=== PATIENT | male | born 1950 | race Caucasian/White ===

== ENCOUNTER 2019-08-10 11:16 | Observation (INO) | payer OTHER, SELFPAY ==
[2019-08-09] VITALS (21 sets, daily range): BP systolic 98–178; BP diastolic 60–97; PULSE 59–97; RESP 12–19; TEMP 36.3–37.2; O2SAT 91–99; BMI 27.7
--- NOTE | 2019-08-09 | PATH_ITS ---
[facility] Accession Number: [id number] . 01 Material submitted: . prostate - PROSTATE TISSUE . 02 Diagnosis: Prostate Tissue, Transurethral Resection: Benign prostatic hyperplasia. No evidence of neoplasia. [facility] 08/12/2019 1156 Local . 02 Electronically signed: . Salma George MD, Pathologist NPI- [id number] . 01 Gross description: . Received in formalin, labeled prostate tissue, are multiple fragments of hernandez rubbery tissue (26 grams, 6.5 x 5.0 x 2.0 cm in aggregate). [employer] tissue submitted in cassettes A1-A10. ([id number]) /MRV 08/11/2019 2148 Local . 02 Pathologist provided ICD-10: N40.1 . 02 CPT . 030714 Performed at: 01 [facility] [address] [id number] MD Jossue Osborne MD Phone: [phone] Performed at: 02 [facility] [address] [place], [place] [id number] MD Salma George MD Phone: [phone]
--- NOTE | 2019-08-09 07:44 | PM.PREOP ---
Pre-operative Note Interval Note History & Physical reviewed/Exam performed by Physician: Yes Changes to H&P: No H&P completed within 30 days and has changed as indicated here:: H&P on file.
--- NOTE | 2019-08-09 07:45 | PM.HP.1 ---
History of Present Illness History of Present Illness Date Patient Seen: 08/09/19 Chief complaint: [id number] Meds Home Medications and Allergies Home Medications Medication Instructions Recorded Confirmed Type ascorbic hyrh-axrykgrd-fod 1,000 mg PO 08/09/19 History [Emergen-C] finasteride 5 mg PO DAILY 08/09/19 08/09/19 History tamsulosin 0.4 mg PO DAILY 08/09/19 08/09/19 History Allergies Allergy/AdvReac Type Severity Reaction Status Date / Time codeine AdvReac Intermediate Anxiety Verified 08/09/19 08:03 Review of Systems Review of Systems Narrative: Review of systems contained in scanned H&P. Assessment & Plan Assessment & Plan narrative: Bladder outlet obstruction. 1. Transurethral resection of prostate
[2019-08-09] MEDS: LACTATED RINGERS 1,000 ML 42 ML IV ×2 (08:05→10:45)
--- NOTE | 2019-08-09 08:46 | PM.OP.1 ---
Operative Date/Time/Diagnoses Date of procedure: 08/09/19 Time of procedure: 08:46 Pre-op diagnosis: Phimosis Balanitis Post-op diagnosis: same Procedure & Clinicians Procedure: Revision circumcision (dorsal slit) Same procedure as scheduled: Yes Indications: 1. Phimosis 2. Balanitis Surgeon: Alcides Jimenez Click Yes if Unassisted: Yes Anesthesia Type: General Operative Notes Findings: Chronic inflammation Active inflammation Closure Type: primary Specimen(s): none sent Prosthetic devices, grafts, tissues, transplants, or devices: Not applicable Estimated Blood Loss (mL): 0 Blood products transfused: none Tourniquet time (min): 0 Complications: none Post-operative Condition: stable Disposition: PACU Plan for aftercare: Schedule appointment with Dr. Jimenez in 2 weeks.
[2019-08-09] MEDS: CEFAZOLIN 2 GM/100 ML FROZ.PIGGY IV (09:00)
--- NOTE | 2019-08-09 09:28 | SUR.OPER ---
Lithotomy on padded OR bed, head on pillow, arms secured on padded arm boards at <90 degrees abduction. Legs secured in padded yellow fins stirrups.
[2019-08-09] MEDS: BELLADONNA/OPIUM SUPPOSITORIES 1 EACH PR (10:25)
--- NOTE | 2019-08-09 11:04 | PM.OP.1 ---
Operative Date/Time/Diagnoses Date of procedure: 08/09/19 Time of procedure: 10:45 Pre-op diagnosis: 1. Bladder outlet obstruction 2. History of prostate cancer Post-op diagnosis: same Procedure & Clinicians Procedure: Transurethral resection of prostate Same procedure as scheduled: Yes Indications: 1. Bladder outlet obstruction 2. Known history of prostate cancer Surgeon: Alcides Jimenez Click Yes if Unassisted: Yes Anesthesia Type: General Operative Notes Findings: Urethral-normal. External sphincter-coapted. Prostate-3.5-4 cm length with moderate try lobar hyperplasia. Bladder-1 to 2+ trabeculation. Normal orifices bilaterally. No stone tumor or foreign body seen. Closure Type: not applicable Specimen(s): other (Prostate resection chips) Applied: catheter (Twenty-four Slovenian 3 way irrigation catheter) Estimated Blood Loss (mL): 50 Blood products transfused: none Procedure in detail: Following induction of general anesthesia the patient was positioned in semi lithotomy and the lower abdomen and genitalia were prepped and draped in sterile fashion. the 25 Slovenian resectoscope was then advanced into the lower urinary track under direct visualization. The resecting loop was then fitted to the resectoscope element with 30 degree lens. Transurethral incisions were then made at 1 and 11:00 a.m. starting at the bladder neck and extending to the level of verumontanum resection was taken to the level of the surgical capsule. The intervening anterior tissue was then resected in a likewise manner. Next, the left and then the right lateral lobes were resected resected. Again, the resection was conducted between the bladder neck and verumontanum with a depth to the level of the surgical capsule. Now the floor and median lobe were resected in the same manner hemostasis was largely achieved with electrocautery there was some residual venous ooze. The bladder is was left partially filled and the resectoscope was removed. A [address] Fisher catheter was then inserted. The balloon was inflated to 45 cc. Gentle traction was then applied to the catheter and the bladder and the lower urinary tract was irrigated until the a syringe outflow was a light red. There was no clots. The 3 way catheter inflow was then fitted with gravity normal saline the outflow was attached to a collection bag all the tissue from the drain and iliac evacuator were collected and submitted to pathology for routine gross and microscopic examination. The patient was then repositioned in supine and awakened transferred to a gurney and transported to recovery in stable condition. Complications: none Post-operative Condition: stable Disposition: PACU Plan for aftercare: To admit
[2019-08-09] MEDS: LACTATED RINGERS 1,000 ML 100 ML IV ×2 (12:44→22:29)
[2019-08-09] MEDS: OXYCODONE IR 5 MG TABLET PO ×2 (13:41→23:05)
[2019-08-09] MEDS: ACETAMINOPHEN 325 MG TABLET 650 MG PO ×3 (13:42→20:46)
--- NOTE | 2019-08-09 15:20 | PC.NURSE ---
Day Shift- RN Coordinator Ron garnett report from PACU. This RN received written report. Pt arrived to unit at 1209 into room 214. Pt's at bedside. Pt A&OX4, states feeling slightly groggy still. Reports 5/10 pelvic discomfort and urinary catheter tugging/pulling. Catheter secure device changed to be closer to groin. CBI infusing for bright/dark red blood with sediment and blood clots. Irrigated catheter X4 with sterile NS. Changed urinary catheter tubing/bag X1 at 1230 due to unable to retrieve clot. Medicated with scheduled Tylenol and prn Oxycodone at 1340 with good effect. Pain decreased from 5/10 to 3/10 to pelvic area. Pt continues to state the sensation like he has to void. Explained the irrigation and sensation post TURP. See in/out irrigation flowsheet. At 1530, urine has less sediment, no clots, lightening in color from bright/dark red to red, appears more diluted.
--- NOTE | 2019-08-09 23:49 | PC.NURSE ---
Addendum entered by Daisha Edwards R.N. 08/10/19 06:40: Medicated with Oxycodone for 4/10 suprapubic pain. Urine is beamster red this morning and has had no clots during the night. Original Note: Patient is alert and oriented. Breath sounds CTA with RA sat of 92%. HRR. Denies nausea. BT present but not passing flatus as yet; mildly distended. Indwelling catheter patent with continuous irrigation infusing via 3 way catheter; urine is watermelon color and without clots noted. Able to move self in bed but preferring to stay on back. Up earlier on evening shift at edge of bed using walker and 1 assist. Complained of 3/10 suprapubic pain and was medicated with Oxycodone. Wearing bilateral SCD's. Fall risk score is high and bed alarm is activated.
[2019-08-10] MEDS: ACETAMINOPHEN 325 MG TABLET 650 MG PO ×5 (00:37→23:41)
[2019-08-10 04:38] VITALS: BP 130/77; PULSE 66; RESP 16; TEMP 36.6; O2SAT 93
[2019-08-10] MEDS: OXYCODONE IR 5 MG TABLET PO ×3 (06:32→20:11)
[2019-08-10] MEDS: LACTATED RINGERS 1,000 ML 100 ML IV (07:38)
[2019-08-10 08:00] VITALS: BP 135/82; PULSE 62; RESP 16; TEMP 36.6; O2SAT 96
[2019-08-10] MEDS: FINASTERIDE 5 MG TABLET PO (09:12)
[2019-08-10] MEDS: DOCUSATE 100 MG CAPSULE PO ×2 (09:12→20:11)
--- NOTE | 2019-08-10 11:18 | PM.PN.1 ---
Subjective Subjective Date Patient Seen: 08/10/19 Time Patient Seen: 11:18 Interval history: Catheter hand irrigation was required intermittently from about 1600 219 100 p.m. yesterday intermittently. I spoke with staff nurse later in the evening and catheter was functioning well on brisk saline gravity irrigation. The remainder of the night was uneventful and he required no further irrigation and has remained light pink. He denies nausea vomiting or significant postoperative discomfort. Exam Vital Signs (past 8 hours): - 08/10/19 04:38 08/10/19 08:00 Temperature 97.9 F 97.8 F Pulse Rate 66 62 Respiratory Rate 16 16 Blood Pressure 130/77 135/82 Pulse Oximetry 93 96 Oxygen Delivery Method Room Air Oxygen Flow Rate 0 He is sitting upright in bed no acute distress. Chest equal clear and unlabored bilaterally abdomen is scaphoid soft without tenderness. Extremities are warm and without pallor or cyanosis. SC D's are in place. Assessment & Plan Assessment & Plan narrative: 1. Stable status post transurethral resection of prostate. He currently requires further observation with continuous gravity saline irrigation. 1. Plan to increase diet and activity and observe color and character of catheter outflow. Will place plug and catheter inflow when reliably clear. 2. Pathology pending. Quality VTE Deep Vein Thrombosis/Pulmonary Embolism Present on Admission: No
--- NOTE | 2019-08-10 11:23 | PC.NURSE ---
Addendum entered by Margot Villa R.N. 08/10/19 15:00: Plugged pts catheter and he now has 150cc of strawberry colored urine output. His true urine before being disconnected from irrigation was 325cc. Pt is drinking po well. Original Note: Assess- Patient is now sitting up in chair.. into see patient and turned down patients irrigation to 3 way 24f blount catheter. He has some strawberry colored urine in bag now. Urine color has cleared up a lot since last evening. He is now heplocked and has been taking po intake well. Does have some lower abdominal pain and is getting oxycodone for discomfort. is in room and he has not complained of any nausea. Stood up and ambulated in room with walker, initally felt dizzy but that has resolved. Patients vital signs are wnl.
--- NOTE | 2019-08-10 14:01 | CM.DANOTE ---
DCP Assessment: EMR reviewed: Patient is a 68 yr old male who was admitted for Transurethral resection of the prostate preformed by Dr. Jimenez. Patients PCP is Reji Bone. CM/RN met with patient at the bedside and explained role. Patient was alert and oriented during CM/RN meeting. Patients , Jacek was present during CM/RN meeting. Patient lives in [facility] in a two story home. Patients bedroom and bathroom are on the second floor and the patients kitchen and other living spaces is on the ground floor. Patients ask if she could have some care giving training for how to help her up the stairs and how to help patient while he is recovering. CM/RN spoke with patients Nurse and she called patients provider and was given the okay to order PT to work with patient and his prior to D/C. PT evaluation pending. I: [place] and self pay Plan: D/C home when medically stable. Have PT evaluate and help with caregiver training prior to D/c. No other d/c planning needs noted at this time. CM department will follow to help with any d/c planning needs that may arise. Tova Pillai RN. Discharge Planning/Care Management Advanced directive, confirm from FAMILY Start: 08/09/19 12:40 Freq: Q24H Status: Active Protocol: Document 08/09/19 12:44 SFP (Rec: 08/09/19 12:45 SFP [id number]) Advance Directive, confirm on record Time 12:45 Person contacted jacek, spouse Copy received No Document 08/10/19 13:37 CLL (Rec: 08/10/19 13:37 CLL [id number]) Advance Directive, confirm on record Time 12:45 Person contacted jacek, spouse Copy received No CM Discharge Assessment Start: 08/10/19 13:59 Freq: Status: Active Protocol: Document 08/10/19 13:59 HS (Rec: 08/10/19 14:00 HS [id number]) Discharge Planning Assessment Assigned Nurse Behavioral Health Care Tova Pillai RN DPOA/Assigned Designee Name Jacek De La Fuente () Contact Information [phone] Advance Directives? Yes History Provided By Patient,Significant Other Has Patient been admitted in last 30 No days? Prior Living Arrangements House Comment Patient lives in [facility] Household Members spouse Type of transporation used prior to Drives own vehicle admit Independent with ADL's Yes Is patient alert and oriented? Yes Caregiver for Another No DME Already Rented / Owned Bath Bench,FWW / Walker Discharge Plan Home Referrals Initiated None needed Whiteboard Updated in Patient Room with Yes name and ext. # of Nurse Behavioral Health Care Review Status In Process Next Review Type Continued Stay Review Pre-Anesthesia Assessment Start: 08/05/19 11:34 Freq: Status: Complete Protocol: Document 08/05/19 11:34 CAB (Rec: 08/05/19 11:36 CAB [id number]) Pre-Anesthesia Assessment PAC Comment No previous medical history identified, PCP unknown. Surgeon H&P not available at time of assess, unable to complete PAC
--- NOTE | 2019-08-10 14:55 | PT.IIE ---
Current Diagnoses Malignant neoplasm of prostate (08/09/19) Benign prostatic hyperplasia with lower urinary tract symptoms (08/09/19) Surgery Performed Operation Date: 08/09/19 09:15 Actual Procedures p Transurethral Resection Prostate(Not Applicable) - Alcides Jimenez MD Physical Therapy Inpatient Evaluation/Re-Eval M1 PT/OT-IP Prior Functional Status Start: 08/10/19 15:58 Freq: NEEDED Status: Active Protocol: Document 08/10/19 14:55 AB (Rec: 08/10/19 16:32 AB [id number]) Medical Review Prior Functional Status Medical History Reviewed Yes Communication able to make needs known Mobility and Gait pt stated that he is independent with all mobilities and ambulation without AD Social History Household Members spouse Living Arrangements House Number of Floors (Floors) Two Floors Number of Stairs To Enter/Railing? 2 steps to enter without rails 12 steps with R rail ascending to 2nd level bedroom Home Environment Standard Height Toilet,Walk in Shower,Built-In Shower Seat Home Equipment Straight Cane,Hand Held Shower ,Grab Bars In Shower Employment Status Retired Additional Social History Comment spouse will assist pt but only for a few days per pt. M2 PT-IP Current Condition Start: 08/10/19 15:58 Freq: NEEDED Status: Active Protocol: Document 08/10/19 14:55 AB (Rec: 08/10/19 16:32 AB [id number]) Physical Therapy Current Condition Current Condition Evaluation Date 08/10/19 Treatment Diagnosis s/p TURP; difficulty in walking Onset Date 08/09/2019 M3 PT-IP Subjective Start: 08/10/19 15:58 Freq: NEEDED Status: Active Protocol: Document 08/10/19 14:55 AB (Rec: 08/10/19 16:32 AB [id number]) Subjective Physical Therapy Visit Type Type Initial Evaluation Visit Start Time 14:55 Visit Stop Time 15:50 Total Visit Minutes 55 Number of INFORMATION ASSISTANT Visits 0 Physical Therapy Visit Comments Patient Comments pt agreeable to do PT Therapy Pain Assessment Pain When Pain Assessed At Rest Pain Present Pain Present Pain Reported Location Lower Abdomen Intensity 2 Scale Used Numeric (1 - 10) M4 PT-IP Mobility and Gait Start: 08/10/19 15:58 Freq: NEEDED Status: Active Protocol: Document 08/10/19 14:55 AB (Rec: 08/10/19 16:32 AB [id number]) PT-Bed Mobility Assessment Rolling Type of Rolling Log Rolling Level of Assist Standby Assistance Supine to Sit Supine to Sit Standby Assistance Sit to Supine Sit to Supine Standby Assistance Scooting Scooting to Edge of Bed Standby Assistance PT-Transfer Assessment Sit to and From Stand Sit to and from Stand Standby Assistance,1 Person Assistance,Use of Upper Extremities Equipment Transfer Assistive Device Gait Belt,Front Wheeled Walker Orthotic/Prosthetic Devices or Brace: No Transfers Transfer Destination Chair Transfer Technique ambulated using FWW Transfer Ability Level of Assist Standby Assistance,Contact Guard Assistance,1 Person Assistance,Use of Upper Extremities Comments Mobility Comments pt completed supine to sit log roll SBA and cues. pt was able to sit on EOB SBA. pt completed sit to stand CGA and cues and ambulated to the chair SBA to CGA. pt agreed to do further ambulation and stair climbing and completed. requested to go back to bed afterwards. completed sit to supine SBA. positioned pt in bed. call light and table placed within reach. informed pt regarding recommendation of using a FWW at this time for safety as pt' s activity tolerance is still low. stated that he will ask his if they come borrow one somewhere and will informed therapy if he needs to purchase one. Gait Assessment Gait Gait Assistance Required: Standby Assistance,Contact Guard Assist Distance (Feet) 300 Assistive Devices Assistive Device Gait Belt,Front Wheeled Walker Orthotic/Prosthetic Devices or Brace: No Gait Deviations General Gait Pattern Antalgic,Decreased Stride Length,Decreased Feet Clearance Factors Limiting Gait Function Factors Limiting Gait Function Decreased Activity Tolerance, Decreased Strength,Pain,Poor Balance Comments Gait Comments completed ambulation in room ~ 20 ft CGA using FWW. ambulated in the hallway ~ 300 ft SBA to CGA using fWW with decrease step length and LE elvation. stated that his R knee is bothering him. completed steps and ambulated back to the room using FWW ~ 300 ft SBA. stated that he feels steadier with 2nd walk. assessed ambulation without AD and pt completed with CGA. presents with antalgic gait with increase R knee flexion during stance phase. pt c/o R knee posterior tightness. Pt stated that he feels shaky towards end of tx session. Stair Climbing Assessment Evaluation Level of Assist On Stairs Contact Guard Assistance, Minimal Assistance,1 Person Assistance Devices Stair Climbing Assistive Devices None,Straight Cane,Right Railing Technique/Endurance Stair Climbing Direction Ascend and Descend Stair Climbing Technique Step to Step Number of Steps Climbed 3 Query Text: Stair Climbing Set # Repetitions (reps) 4 Comments Stair Climbing Comments completed steps with bilateral rails CGA then completed just R rail ascending holding with B hands CGA. up/down 3 steps without rails min A and cues. PT educated and demonstrated use of SPC with stair climbing . pt use SPC on L side since pt is c/o R knee bothering him . completed up/down 3 steps using SPC CGA and cues. PT-Balance Assessment Sitting Balance and Reactions Static Sitting Balance Ability Good Dynamic Sitting Balance Ability Good Standing Balance and Reactions Static Standing Balance Ability Good Dynamic Standing Balance Ability Fair Device Used FWW M5 PT-IP Objective Assessments Start: 08/10/19 15:58 Freq: NEEDED Status: Active Protocol: Document 08/10/19 14:55 AB (Rec: 08/10/19 16:32 AB [id number]) Orientation Orientation/Cognition Level of Alertness Alert Orientation Name,Place,Situation Safety Awareness Understands Safety Issues Memory Description No Deficits Noted Gross Range of Motion Lower Extremity ROM Assessment Within Functional Limits Strength Lower Extremity Strength Hip 4-/5 Knee 4-/5 Coordination Assessment Gross Coordination Gross Coordination WNL Sensation Assessment Sensation Gross Sensation WNL Muscle Tone Muscle Tone WNL Yes M6 PT-IP Treatment Start: 08/10/19 15:58 Freq: NEEDED Status: Active Protocol: Document 08/10/19 14:55 AB (Rec: 08/10/19 16:32 AB [id number]) Physical Therapy Treatment Education Education Provided Safety M7 PT-IP Assessment and Plan Start: 08/10/19 15:58 Freq: NEEDED Status: Active Protocol: Document 08/10/19 14:55 AB (Rec: 08/10/19 16:32 AB [id number]) PT Summary Assessment and Plan Potential Rehabilitation Potential Good Status of Condition at Evaluation Stable Summary Impairments Pain,ROM,Strength,Balance, Coordination,Sensation,Tone, Cognition,Bed Mobility, Transfers,Gait,Activity Tolerance Assessment Summary pt requiring SBA to CGA with ambulation using FWW. Assessed ambulation without AD but pt requires min A. pt c/o R knee tightness and weakess affecting mobility. recommending use of FWW at this time and pt understood. pt stated that he will inform his spouse to see if they can borrow one but if not, they will purchase one. pt plans to go home and spouse will assist him. will have to conduct caregiver training when appropriate. Goals Bed Mobility Goal Independent Transfer Goal Independent,Front Wheeled Walker Gait Goal Independent,Front Wheel Walker Gait Distance 350 Other Goals ambulation without AD SBA 300 ft up/down 2 steps using SPC SBA up/down 12 steps using R rail ascending SBA Days to Meet Goals 5 Frequency of Treatment Frequency Of Treatment Once a Day Treatment Plan Physical Therapy Treatment Plan Bed Mobility Training,Transfer Training,Gait Training, Therapeutic Exercise,Balance Retraining,Post Op Education, Discharge Planning Other Recommendations and Next Treatment ambulation, stair climbing, Focus caregiver training, f/u on FWW Recommendations To Nursing Amount of Assist Needed 1 Person Assist Discharge Recommendations PT Discharge Recommendations Home with Assistance,Home Health Equipment Needed for Home Before FWW Discharge
[2019-08-10 15:43] VITALS: BP 140/68; PULSE 64; RESP 18; TEMP 36.9; O2SAT 96
[2019-08-10 16:44] VITALS: O2SAT 98
--- NOTE | 2019-08-10 22:42 | PC.NURSE ---
Pt irrigation fluid has been pale pink this shift as well as medium pale cranberry colored. Irrigating prn. Pt is drinking a lot of water. Pain is well managed. Eating and drinking, able to sleep. Ambulates in [place] with FWW SBA x 1.
[2019-08-10 23:40] VITALS: BP 144/76; PULSE 66; RESP 16; TEMP 36.9; O2SAT 96
[2019-08-11 04:00] VITALS: BP 109/64; PULSE 68; RESP 17; TEMP 36.4; O2SAT 95
[2019-08-11] MEDS: ACETAMINOPHEN 325 MG TABLET 650 MG PO ×3 (06:25→12:03)
--- NOTE | 2019-08-11 07:32 | PC.NURSE ---
Pts blount was mostly watermelon/pink colored during the night. Once he ambulated around the halls it became darker with minimal clots as well. I hooked up the CBI again and ran 1200mL in and got out 1500mL over the course of 15min. It ran in pretty fast however even with only unrolling the clamp about [address] Encouraging PO intake for patient to start being able to flush out his blount himself with just PO liquids. Minimal pain rated 3 out of 10 relieved with tylenol.
--- NOTE | 2019-08-11 07:52 | PM.DS.1 ---
History of Present Illness History of Present Illness Date Patient Seen: 08/11/19 Time Patient Seen: 07:53 Chief complaint: *OPB* [id number] Narrative: 1. Bladder outlet obstruction. 2. Failure of medical therapy. 3. History of prostate cancer. Discharge Providers Provider Date of admission: August 09, 2019 Discharge Date: 08/11/19 Primary care physician: Briseyda Mendoza PA-C Consults: 08/10/19 13:35 Consult to Physical Therapy Evaluate & Treat Comment: Physician Instructions: Evaluate and Treat Discharge provider: Alcides Jimenez MD Summary Hospital Course Discharge Diagnosis: 1. Bladder outlet obstruction. 2. Failure of medical therapy. 3. History of prostate cancer. Hospital Course: The patient was admitted on the morning of August 09, 2019 and underwent uncomplicated transurethral resection of the prostate under general anesthesia. Postoperatively he required hand irrigation to clear clot in the late afternoon of August 09 but thereafter gravity saline continuous bladder irrigation was uneventful. On the morning of August 10, 2019 bladder irrigation was discontinued and a catheter plug was inserted in the inflow. He subsequently ambulated ultimately without assistance tolerated general diet and had return of bowel function as evidence by passage of flatus. Color and character of the catheter outflow remained blood tinged but without clot and not requiring hand irrigation. On the morning of August 10, 2019 he was stable for discharge. He was provided prescriptions for ciprofloxacin and oxycodone with administration instructions and reviewed common side effects. He was provided a large and a leg bag with home care and use instruction. A supervised voiding trial at my office will be arranged by telephone on 07/19/2020. Routine post transurethral resection of the prostate activity driving lifting and hygiene restrict instructions were provided. Pathology report was pending at discharge. Status at Discharge Cognitive/behavioral status at discharge: oriented Functional status at discharge: independent ambulation Overall status at discharge: patient is back to baseline Time Spent with Patient Time spent: Less than 30 minutes Exam Vital Signs (past 8 hours): - 08/11/19 04:00 Temperature 97.6 F Pulse Rate 68 Respiratory Rate 17 Blood Pressure 109/64 Pulse Oximetry 95 Oxygen Delivery Method Room Air Oxygen Flow Rate 0 Discharge Plan Discharge Plan Patient Disposition: Home Discharge comment: Discharge to home Discharge Med Rec/Prescriptions Prescriptions: No Action tamsulosin 0.4 mg Capsule 0.4 mg PO DAILY RF: 0 finasteride 5 mg Tablet 5 mg PO DAILY RF: 0 Emergen-C 1,000 mg Powder Effervescent In Packet 1,000 mg PO RF: 0 Follow up/Referrals: Briseyda Mendoza PA-C [Primary Care Provider] - Alcides Jimenez MD [Physician] - (post operative follow up in 1 week.) Visit Report/Discharge Packet Instructions: How to Care for Your Fisher Catheter -- Male, DI for Transurethral Resection of the Prostate, How to Prevent Falls Discharge Data Primary Care Provider: Briseyda Mendoza Attending Provider: Alcides Jimenez Quality VTE Deep Vein Thrombosis/Pulmonary Embolism Present on Admission: No
[2019-08-11] MEDS: OXYCODONE IR 5 MG TABLET PO (08:42)
[2019-08-11] MEDS: DOCUSATE 100 MG CAPSULE PO (08:42)
[2019-08-11] MEDS: BISACODYL 10 MG SUPP PR (08:42)
[2019-08-11] MEDS: FINASTERIDE 5 MG TABLET PO (08:43)
[2019-08-11 08:44] VITALS: BP 122/68; PULSE 76; RESP 16; TEMP 36.7; O2SAT 93
--- NOTE | 2019-08-11 11:42 | PT.IPTN ---
Current Diagnoses Malignant neoplasm of prostate (08/09/19) Benign prostatic hyperplasia with lower urinary tract symptoms (08/09/19) Surgery Performed Operation Date: 08/09/19 09:15 Actual Procedures p Transurethral Resection Prostate(Not Applicable) - Alcides Jimenez MD Physical Therapy Treatment Note M2 PT-IP Current Condition Start: 08/10/19 15:58 Freq: NEEDED Status: Active Protocol: Document 08/10/19 14:55 AB (Rec: 08/10/19 16:32 AB [id number]) Physical Therapy Current Condition Current Condition Evaluation Date 08/10/19 Treatment Diagnosis s/p TURP; difficulty in walking Onset Date 08/09/2019 M3 PT-IP Subjective Start: 08/10/19 15:58 Freq: NEEDED Status: Active Protocol: Document 08/11/19 11:25 CLB (Rec: 08/11/19 12:04 CLB [id number]) Subjective Physical Therapy Visit Type Type Treatment Note Visit Start Time 11:25 Visit Stop Time 11:42 Total Visit Minutes 17 Number of RADAR ENGINEER Visits 1 Physical Therapy Visit Comments Patient Comments pt agreeable to do PT Therapy Pain Assessment Pain When Pain Assessed During Mobility Pain Present Pain Present Pain Reported Location Lower Abdomen Intensity 2 Scale Used Numeric (1 - 10) M4 PT-IP Mobility and Gait Start: 08/10/19 15:58 Freq: NEEDED Status: Active Protocol: Document 08/11/19 11:25 CLB (Rec: 08/11/19 12:04 CLB [id number]) PT-Transfer Assessment Sit to and From Stand Sit to and from Stand Standby Assistance,1 Person Assistance,Use of Upper Extremities Equipment Transfer Assistive Device Gait Belt Orthotic/Prosthetic Devices or Brace: No Transfers Transfer Destination Chair Transfer Technique Stand Step Pivot Transfer Ability Level of Assist Standby Assistance,Contact Guard Assistance,Use of Upper Extremities Comments Mobility Comments Pt is SBA for sit-stand and transfers. Gait Assessment Gait Gait Assistance Required: Standby Assistance,Contact Guard Assist Assistive Devices Assistive Device Gait Belt,Straight Cane Orthotic/Prosthetic Devices or Brace: No Comments Gait Comments Pt able to ambulate ~300ft with SPC and CGA. Pt with slow laverne due to pain but was steady with good posture and safety awareness. Pt's was able to provide CGA for ~ 200ft. Stair Climbing Assessment Evaluation Level of Assist On Stairs Contact Guard Assistance,1 Person Assistance Devices Stair Climbing Assistive Devices None,Straight Cane,Right Railing Technique/Endurance Stair Climbing Direction Ascend and Descend Stair Climbing Technique Step to Step Number of Steps Climbed 3 Stair Climbing Set # Repetitions (reps) 4 Comments Stair Climbing Comments Pt perform stair climbing with therapist providing CGA and cues for demonstration and education. Pt's was able to provide CGA for pt with stair climbing. M5 PT-IP Objective Assessments Start: 08/10/19 15:58 Freq: NEEDED Status: Active Protocol: Document 08/10/19 14:55 AB (Rec: 08/10/19 16:32 AB [id number]) Orientation Orientation/Cognition Level of Alertness Alert Orientation Name,Place,Situation Safety Awareness Understands Safety Issues Memory Description No Deficits Noted Gross Range of Motion Lower Extremity ROM Assessment Within Functional Limits Strength Lower Extremity Strength Hip 4-/5 Knee 4-/5 Coordination Assessment Gross Coordination Gross Coordination WNL Sensation Assessment Sensation Gross Sensation WNL Muscle Tone Muscle Tone WNL Yes M6 PT-IP Treatment Start: 08/10/19 15:58 Freq: NEEDED Status: Active Protocol: Document 08/10/19 14:55 AB (Rec: 08/10/19 16:32 AB [id number]) Physical Therapy Treatment Education Education Provided Safety M7 PT-IP Assessment and Plan Start: 08/10/19 15:58 Freq: NEEDED Status: Active Protocol: Document 08/11/19 11:25 CLB (Rec: 08/11/19 12:04 CLB [id number]) PT Summary Assessment and Plan Potential Rehabilitation Potential Good Status of Condition at Evaluation Stable Summary Impairments Pain,ROM,Strength,Balance, Coordination,Sensation,Tone, Cognition,Bed Mobility, Transfers,Gait,Activity Tolerance Assessment Summary Pt with improved activity tolerance was able to ambulate with SPC ~300ft and climb stairs with asssit of his . Pt demonstrated improvement with steadiness during ambulation and was able to ambulate with SPC and CGA provided by pt's . Pt is SBA for sit-stand and transfers. Goals Bed Mobility Goal Independent Transfer Goal Independent,Front Wheeled Walker Gait Goal Independent,Front Wheel Walker Gait Distance 350 Other Goals ambulation without AD SBA 300 ft up/down 2 steps using SPC SBA up/down 12 steps using R rail ascending SBA Days to Meet Goals 5 Frequency of Treatment Frequency Of Treatment Once a Day Treatment Plan Physical Therapy Treatment Plan Bed Mobility Training,Transfer Training,Gait Training, Therapeutic Exercise,Balance Retraining,Post Op Education, Discharge Planning Recommendations To Nursing Amount of Assist Needed 1 Person Assist Discharge Recommendations PT Discharge Recommendations Home with Assistance,Home Health Equipment Needed for Home Before Pt's will be picking up Discharge FWW and SPC for home use.
--- NOTE | 2019-08-11 12:44 | CM.DPC ---
DCP: continued: case received and discussed in Team Rounds. EMR reviewed. PT has been ok'd for d/c to home setting today. PT did work with him and his at their request and DOCTOR OF OSTEOPATHY Krystle confirms that he is stable for the home setting and that his is picking up a cane and a FWW.
--- NOTE | 2019-08-11 14:10 | PC.NURSE ---
Day shift: Pt left unit in WC with JARRETT Velasquez at approx 1400. Pt's spouse driving him back to [place]. Pt instructed on Fisher cath care and leg bag in place. Urine output good and urine remains plum colored. Pt has f/u w/ MD on Monday. Pt has all personal belongings and MD scrips. Paperwork signed and all questions answered.
== END 2019-08-11 14:18 | disposition home or self-care (01) ==
LOC: OR 08-12 07:08
PROVIDERS: Admitting Provider Specialist; PCP Physician Assistant; Visit Provider Specialist
PROC: 0VT08ZZ Resection of Prostate, Via Natural or Artificial Opening Endoscopic (ICD-10-PCS; CPT 52601; principal; 2019-08-09 09:15)
DX: N40.1 Benign prostatic hyperplasia with lower urinary tract symptoms (principal); N13.8 Other obstructive and reflux uropathy; Z85.46 Personal history of malignant neoplasm of prostate
CPT/HCPCS: 52601; 97116; 97161; G0378; J0690; J1100; J2405; J2704; J3010

== ENCOUNTER → 2024-02-02 10:30 | Outpatient (CLI) | payer OTHER, SELFPAY ==
[2021-01-05 13:28] VITALS: BMI 27.7
--- NOTE | 2024-02-02 10:31 | DI.MRI.S_ITS ---
PROCEDURE: MR PELIS WO/W CON INDICATIONS: History of prostate cancer TECHNIQUE: Coronal HASTE, axial T1 FSE with fat saturation, 3-plane nonbreath-hold T2 FSE. After the administration of contrast, dynamic axial, delayed axial and coronal VIBE or 2-D FLASH with fat saturation through the pelvis. Diffusion weighted imaging and ADC was performed. COMPARISON: [facility], MR, MR PELVIS WITH/WITHOUT CONTRAST, 01/01/2020, 9:08. FINDINGS: Image quality: Diffusion weighted and dynamic contrast enhanced images are diagnostic. Prostate: Gland size is 4.1 x 3.0 x 2.6 cm; ellipsoid gland volume is 16 mL. TURP changes. No PI-RADS 3 through 5 lesions. Genitourinary system: Bladder wall thickness is normal. Distal ureters are non distended. Bowel and peritoneum: Moderate volume free fluid in the pelvis. Inferior colon and small bowel loops are normal in caliber. Nodes and vessels: No pelvic or inguinal adenopathy by size criteria. Iliac vessels are normal in caliber. Soft tissues: Moderate left and small right inguinal hernia containing fat. Bones: Marrow demonstrates normal overall signal, without lesions to suggest metastases. IMPRESSION: Prior TURP. No PI-RADS 3 through 5 lesions. No pelvic lymphadenopathy by size criteria. No aggressive osseous abnormality. Moderate free fluid in the pelvis. Dictated by: Waqas Lopez M.D. on 02/02/2024 at 12:04 Approved by: Waqas Lopez M.D. on 02/02/2024 at 12:19
[2024-02-02 13:58] LABS: Prostate Specific Antigen 1.92 ng/mL (0.10-4.00)
== END ==
PROVIDERS: PCP Physician Assistant; Referring Provider Specialist; Visit Provider Specialist
DX: C61 Malignant neoplasm of prostate (principal); K40.20 Bilateral inguinal hernia, without obstruction or gangrene, not specified as recurrent
CPT/HCPCS: 36415; 72197; 84153; A9579